=== PATIENT | male | born 1960 | race Native Hawaiian/Other Pacific Islander ===

== ENCOUNTER 2017-04-18 22:41 | Emergency (ER) | payer SELFPAY ==
[2017-04-18 22:50] VITALS: O2SAT 97
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
[2017-04-19 01:30] VITALS: BP 109/70; PULSE 76; RESP 20; TEMP 97.6
== END 2017-04-19 02:00 | disposition home or self-care (01) ==
LOC: C.ER 22:41
DX: S22.32XA Fracture of one rib, left side, initial encounter for closed fracture (principal); S00.83XA Contusion of other part of head, initial encounter; S20.222A Contusion of left back wall of thorax, initial encounter; Y04.0XXA Assault by unarmed brawl or fight, initial encounter
CPT/HCPCS: 70480; 71110; 96372; 99283; J1885